=== PATIENT | male | born 1980 | race Caucasian/White ===

== ENCOUNTER 2023-10-07 05:15 | Emergency (ER) | payer BC, SELFPAY ==
[2023-10-07 05:16] VITALS: BP 125/79; PULSE 64; RESP 18; TEMP 36.7; O2SAT 100
== END 2023-10-07 07:13 | disposition left against medical advice (07) ==
LOC: ANHED 05:48
PROVIDERS: PCP Family Medicine
DX: R10.9 Unspecified abdominal pain (principal); Z53.21 Procedure and treatment not carried out due to patient leaving prior to being seen by health care provider
CPT/HCPCS: 99199

== ENCOUNTER 2025-08-21 16:19 | Emergency (ER) | payer BC, SELFPAY ==
--- NOTE | ~2025-08-21 | XR_ITS ---
EXAMINATION: XR tibia fibula RT 2V, 08/21/2025 16:50 INDUSTRIAL TECHNOLOGY EDUCATION TEACHER HISTORY: pain medial mid shaft x 3 wks, no injury, pt a runner COMPARISON: No comparisons available. Findings: No acute fracture or malalignment. No significant degenerative changes. Soft tissues unremarkable. Impression: No acute fracture or malalignment. Reviewed, dictated and finalized at location P. STRIAL TECHNOLOGY EDUCATION TEACHER Impression: No acute fracture or malalignment.
[2025-08-21 16:26] VITALS: BP 131/84; PULSE 83; RESP 16; TEMP 36.5; O2SAT 98
--- NOTE | 2025-08-21 16:39 | ED.LOWEXIN ---
HPI - Extremity Injury (Lower) General Chief Complaint: Extremity Injury, Lower Stated Complaint: Haynes Pain Time Seen by Provider: 08/21/25 16:39 Source: patient, RN notes reviewed and old records reviewed Mode of arrival: ambulatory Limitations: no limitations History of Present Illness HPI Narrative: 44 year old male with complaints of running 4 miles about 4 weeks ago and could hardly walk after completing run. Patient reports that he has had continued pain. Patient reports that he has minimal pain at rest but with going up steps, minimal running or jogging pain increased to 7/10. Patient reports that he has taken Ibuprofen at first for his pain initially but has not taken any since. Patient concerned for possible haynes splint or stress fracture MD complaint: other (pain to right lower anterior leg) Onset (ago): week(s) (4) Type of Injury: other (pain to left haynes) Place: street/outdoors Severity scale (1-10): 7 (with moderate activity) Treatments prior to arrival: NSAIDS Related Data Allergies Allergy/AdvReac Type Severity Reaction Status Date / Time No Known Allergies Allergy Verified 08/21/25 16:34 Review of Systems Review of Systems: CONSTITUTIONAL: Denies fever, chills, or sweats. EYES: Denies visual changes, redness, or discharge. ENT: Denies rhinorrhea, congestion, sore throat, or otalgia. CARDIOVASCULAR: Denies chest pain, palpitations, or edema. RESPIRATORY: Denies cough or dyspnea. GASTROINTESTINAL: Denies abdominal pain, nausea, vomiting, or diarrhea. GENITOURINARY: Denies dysuria or hematuria. SKIN: Denies rash or itching. MUSCULOSKELETAL: Denies back pain, pain to the anterior aspect of right lower leg with concern for possible stress fracture or haynes splints, joint pain, or myalgia. NEUROLOGIC: Denies headache, numbness, or weakness. PSYCHIATRIC: Denies anxiety or depression. All systems reviewed & are unremarkable except as noted in HPI and below PMFSH Family History Family History Other Family history of malignant neoplasm Hypertension Social History Social History (Updated 08/23/25 @ 20:24 by Lizzie Lucero APRN) Alcohol intake: never Substance use type: does not use Living arrangements: with family Gender identity (if verbalized by the patient): Male Comments At time of signature, agree with nursing past medical, surgical, social and family history. There is no relevant family history pertinent to the presenting complaint Exam Narrative: GENERAL: Well-appearing, well-nourished, and in no acute distress. HEAD: Normocephalic, atraumatic. EYES: PERRLA and EOMI. ENT: Nares clear, no rhinorrhea or epistaxis. Mucous membranes moist. NECK: Supple. no lymphadenopathy CHEST: Clear to auscultation. No respiratory distress.SAO2 98% on room air HEART: Regular rate and rhythm. No murmur heard. Normal peripheral pulses. ABDOMEN: Soft, nontender, nondistended, normal active bowel sounds. EXTREMITIES: Normal range of motion. No edema. pain to the anterior right haynes which increased with activity and going up stairs. Patient reports that he has no tingling or numbness to his right leg or foot with full ROM of right leg, hip,knee ,foot and ankle without difficulty SKIN: Warm, dry, no rash. NEURO: No focal deficits. Alert and oriented x3. Course Course Emergency Course: Patient is aware of diagnosis, understands and agrees to treatment plan.? Anticipatory guidance given.? Patient agrees to follow-up as directed and is aware of reasons to seek care at the emergency department. Portions of this record may have been created with voice recognition software Level of Care: Express Care Visit Vital Signs Vital signs: Vital Signs Temperature 36.5 C 08/21/25 16:26 Pulse Rate 83 08/21/25 16:26 Respiratory Rate 16 08/21/25 16:26 Blood Pressure 131/84 08/21/25 16:26 Pulse Oximetry 98 08/21/25 16:26 Temperature 36.5 C 08/21/25 16:26 Pulse Rate 83 08/21/25 16:26 Respiratory Rate 16 08/21/25 16:26 Blood Pressure 131/84 08/21/25 16:26 Pulse Oximetry 98 08/21/25 16:26 Reviewed MDM - Extremity Injury (Lower) Differential Diagnosis Differential diagnosis: Likely other (stress fracture to right tibia, haynes pain anterior right leg, haynes splints) Medical Records Attestation: I reviewed the patient's medical records. Imaging Data Attestation: I personally reviewed and interpreted this imaging study as follows: My impression: right tibia/fibula: no acute fracture or malalignment Radiologist's impression: [facility] [address] [facility] [place] [address] XRay Report Signed Patient: Mango Moise : 1980 MR#: [id number] Age: 44 Acct:[id number] Loc: [facility] ADM Date: 08/21/[address]: Ordering Physician: Lizzie Lucero APRN Date of Service: 08/21/25 Procedure(s): XR tibia fibula RT 2V Accession Number(s): [id number] cc: SAMPLE CARRIER PHYSICIAN; Lizzie Lucero PLANTING MACHINE OPERATOR~ EXAMINATION: XR tibia fibula RT 2V, 08/21/2025 16:50 SPECIALIZED LANGUAGE INSTRUCTOR HISTORY: pain medial mid shaft x 3 wks, no injury, pt a runner COMPARISON: No comparisons available. Findings: No acute fracture or malalignment. No significant degenerative changes. Soft tissues unremarkable. Impression: No acute fracture or malalignment. Reviewed, dictated and finalized at location P. IALIZED LANGUAGE INSTRUCTOR Please be advised this is a medical document. It is intended for [id number] communication. It is written in medical language and may contain unfamiliar abbreviations or verbiage. Medical documents are intended to carry relevant information, facts as evident, and the clinical opinion of the practitioner at the time of the encounter. This report may have been done utilizing a voice recognition system. Attempts have been made to correct errors. However, there may be uncorrected grammatical, spelling, and recognition errors present. The file time of this note does not necessarily represent the time of service. Dictated By: Riley Newell MD 08/21/25 1658 Signed By: <Electronically signed by Riley Newell MD in OV> Critical Care Time Critical Care Time Critical Care Time: No Discharge Plan Discharge Clinical Impression: Pain in right haynes Patient Disposition: Home Condition: Stable Instructions: Antibiotic Form, Leg Pain (ED) Additional Instructions: Elastic wrap or compression hose to right lower leg Tylenol for lesser pain Ibuprofen regularly for the next 2-3 days for the inflammation prednisone as prescribed with food start dose tomorrow morning Follow-up with orthopedic surgeon as arranged Follow-up with PCP if further problems or concerns Ice to the area 20-30 minutes 4-6 times a day Elevate above heart If your symptoms persist, change or worsen significantly before you can contact your personal physician then please, without delay, go to the emergency department for further evaluation. Follow-up with PCP in 7-10 days or sooner if needed Follow up with PCP soon in regards to your blood pressure which is elevated above threshold for referral. Blood pressure above 120/80 may indicate pre-hypertension. 131/84 Patient Language: Zimbabwean Prescriptions: New prednisone 20 mg tablet 40 mg PO DAILY 5 Days Qty: 10 0RF Follow-up/Referrals: PHYSICIAN,SAMPLE CARRIER [Primary Care Provider, Internal Medicine] Time of Disposition: 17:25 Quality [place] Coma Scale Eyes: Open Verbal: Oriented and Alert Motor: Follows Commands [place] Coma Total Score: 15
== END 2025-08-21 17:29 | disposition home or self-care (01) ==
PROVIDERS: Emergency Provider Registered Nurse
DX: M79.661 Pain in right lower leg (principal)
CPT/HCPCS: 73590; 99203; G0463

== ENCOUNTER 2025-10-06 22:02 | Emergency (ER) | payer BC, SELFPAY ==
--- NOTE | ~2025-10-06 | CT_ITS ---
CT HEAD NON-CONTRAST CT C-SPINE Clinical History: RUE paresthesias Comparison: None Technique: Unenhanced axial images skull base to vertex. Coronal, sagittal reformats. Axial images thoracic inlet to skull base. Sagittal and coronal reformats. CT images acquired with automatic exposure control for dose reduction DLP: 605 mGy-cm Findings: Head: Sulci, ventricles: Unremarkable. No intracerebral hemorrhage. No evidence acute territorial infarct. No mass effect, midline shift, intra-/extra-axial fluid collection. Bony calvarium intact. Visualized paranasal sinuses: Clear. Mastoid air cells: Clear. C-spine: No acute fracture or listhesis. Vertebral bodies normal height and alignment. No significant degenerative changes. Disc spaces maintained. Prevertebral soft tissues within normal limits. Visualized lung apices: Clear. Visualized thyroid: Unremarkable. No enlarged cervical nodes. IMPRESSION: HEAD: 1. No acute intracranial findings. C-SPINE: 1. No acute fracture. Reviewed, dictated and finalized at location R. MARKER IMPRESSION: HEAD: 1. No acute intracranial findings. C-SPINE: 1. No acute fracture.
--- NOTE | ~2025-10-06 | XR_ITS ---
Examination: XR shoulder RT min 2V Clinical History: anterior shoulder pain, paresthesias Comparison: None Technique: 3 views right shoulder Findings/impression: 1. No fracture or dislocation right shoulder. Reviewed, dictated and finalized at location R. EANT OF OFFICERS
--- OUTSIDE RECORDS SUMMARY | 2025-10-06 22:04 | XMS_ITS | Clinical Summary ---
Author Organization [facility] Address [address] [place] [address] Care Team Providers Care [employer] Supervisor Name Role Phone Fantasma Damian MD Primary Care Provider Source Comments [facility],non-owned Affiliates and Associated Physician Practices is amultiple site organization consisting of ambulatory clinics and hospital sitesin [place], [place], [place] and [place]. This disclosure is being madepursuant to the Care Everywhere program and may not contain all information available regarding this patient. Last updated 18.[facility] [employer] Allergies No known active allergies Medications * Be aware that medications may not be up to date on this document. Alwaysverify current medications with the patient. No known medications Active Problems No known active problems Social History Tobacco Use Types Packs/Day Years Used Date Smoking Tobacco: Never Smokeless Tobacco: Never Sex and Gender Information Value Date Recorded Sex Assigned at Not on file Legal Sex Male 2:33 PM DIRECTOR OF PRODUCT DEVELOPMENT Gender Identity Not on file Sexual Orientation Not on file Last Filed Vital Signs Vital Sign Reading Time Taken Comments Blood Pressure 116/68 11/22/2019 9:11 AM DIRECTOR OF PRODUCT DEVELOPMENT Pulse 62 11/22/2019 9:11 AM DIRECTOR OF PRODUCT DEVELOPMENT Temperature 36.7 C (98 F) 11/22/2019 9:11 AM DIRECTOR OF PRODUCT DEVELOPMENT Respiratory Rate 16 11/22/2019 9:11 AM DIRECTOR OF PRODUCT DEVELOPMENT Oxygen Saturation 98% 11/22/2019 9:11 AM DIRECTOR OF PRODUCT DEVELOPMENT Inhaled Oxygen Concentration - - Weight 90.7 kg (200 lb) 11/22/2019 9:11 AM DIRECTOR OF PRODUCT DEVELOPMENT Height 190.5 cm (6' 3) 11/22/2019 9:11 AM DIRECTOR OF PRODUCT DEVELOPMENT Body Mass Index 25 11/22/2019 9:11 AM DIRECTOR OF PRODUCT DEVELOPMENT Plan of Treatment Health Maintenance Due Date Last Done Comments JEY (AGES 45-75) - COL ON CA SCREENING 1980 COLON MONITORING 1980 COLONOSCOPY - COLON CA SCREENING 1979 CT COLONOGRAPHY - COLON CA SCREENING 1980 Colorectal Cancer Screening 1980 FIT - COLON CA SCREENING 1980 FLEX SIG - COLON CA SCREENING 1979 LIPID TESTING 1980 HIV SCREENING 1994 HEPATITIS C SCREENING 10/27/1997 DTAP/TDAP/TD VACCINES (1 - Tdap) 1998 HEPATITIS B VACCINE (1 of 3 - 19+ 3-dose series) 1998 HPV VACCINE (1 - 3-dose SCDM series) 2006 SCREENING FOR DIABETES 11/22/2019 DEPRESSION SCREENING 10/12/2024 COVID-19 VACCINE (1 - 2024-2 6 season) 2025 INFLUENZA VACCINE (#1) 2025 ZOSTER VACCINE (1 of 2) 2029 HIB VACCINE Aged Out No longer eligi ble based on patient's age to complete this topic MENINGOCOCCAL (Group B) VACC INE SHARED DECISION-MAKING Aged Out No longer eligibl e based on patient's age to complete this topic MENINGOCOCCAL GROUPS A/C/Y/W VACCINE Aged Out No longer eligible b ased on patient's age to complete this topic PNEUMOCOCCAL VACCINE Aged Out No long er eligible based on patient's age to complete this topic Insurance [facility] Care Teams [employer] Supervisor Relationship Specialty Start Date End Date Fantasma Damian MD [address] [place] [address] PCP - General Family Medicine 11/21/16
--- OUTSIDE RECORDS SUMMARY | 2025-10-06 22:04 | XMS_ITS | Clinical Summary ---
Author Organization [address] Address [address] [place] [address] Care Team Providers Care Supervisor [employer]al Iron[employer] Name Role Phone Lai Toth MD Primary Care Provider [phone] Allergies No known active allergies Medications pantoprazole DR (PROTONIX) 40 mg EC tablet TAKE 1 TABLET(40 MG) BY MOUTH DAILY 90 tablet Active Additional Information Patient not taking.Reported on 12/08/2022 Active Problems No known active problems Immunizations Immunization Administration Dates Next Due Influenza, Unspecified 05/30/2022(Deferr ed: Patient Refused),04/25/2022(Deferred: Patient Refused),10/12/2021(Deferred: Patient Refused),07/12/2021(Deferred: Patient Refused),07/12/2020(Deferred: Patient Refused),10/12/2019(Deferred: Patient Refused) Pfizer SARS-CoV-2 Monovalent Vaccination (12+ Yrs) PURPLE 12/16/2020,11/18/2020 Surgical History Surgery Date Site/Laterality Comments NO PAST SURGERIES Medical History Medical History Date Comments Covid 07/17/2021 Brain concussion Family History Medical History Relation Name Comments No Known Problems Father Cancer Mother Lizzie Relation Name Status Comments Father Alive Mother Lizzie Alive Social History Tobacco Use Types Packs/Day Years Used Date Smoking Tobacco: Never Smokeless Tobacco: Never PHQ-2 Answer Date Recorded PHQ-2 Total Score 0 04/25/2022 Personal Safety Answer Date Recorded Getting School Help Needed Not on file 10/30 Sex and Gender Information Value Date Recorded Sex Assigned at Not on file Legal Sex Male 7:15 PM BUSINESS DEVELOPMENT ENGINEER Gender Identity Male 04/18/2021 8:48 AM CDT Sexual Orientation Straight 04/18/2021 8 :48 AM CDT Last Filed Vital Signs Vital Sign Reading Time Taken Comments Blood Pressure 126/80 12/08/2022 4:29 PM BUSINESS DEVELOPMENT ENGINEER Pulse 70 12/08/2022 4:29 PM BUSINESS DEVELOPMENT ENGINEER Temperature 36.3 C (97.3 F) 12/08/2022 4:29 PM BUSINESS DEVELOPMENT ENGINEER Respiratory Rate 16 12/08/2022 4:29 PM BUSINESS DEVELOPMENT ENGINEER Oxygen Saturation 97% 12/08/2022 4:29 PM BUSINESS DEVELOPMENT ENGINEER Inhaled Oxygen Concentration - - Weight 92.7 kg (204 lb 6.4 oz) 12/08/2022 4:29 P M BUSINESS DEVELOPMENT ENGINEER Height 190.8 cm (6' 3.12) 12/08/2022 4:29 PM CS T Body Mass Index 25.47 12/08/2022 4:29 PM BUSINESS DEVELOPMENT ENGINEER Plan of Treatment Health Maintenance Due Date Last Done Comments Colon Cancer Screening-Colonoscopy 1980 Hepatitis C Screening 1980 DTaP/Tdap/Td Vaccine (1 - Tdap) 1990 Varicella Vaccines (1 of 2 - 13+ 2-dose series) 1992 Hepatitis B Screening 1997 HPV Vaccines (1 - 3-dose SCD M series) 2006 Regular Well Visit/Exam 18-64 04/12/2022 04/12/2021 Depression Screening 04/25/2023 04/25/2022, 04/12/2021 Covid-19 Vaccine (3 - 2024-2 6 season) 2025 12/16/2020, 11/18/2020 Influenza Vaccine (#1) 2025 Pneumococcal vaccine <65 Aged Out No longer eligible based on patient's age to complete this topic Insurance [facility] Care Teams Supervisor Ornamental Ironworking Relationship Specialty Start Date End Date Lai Toth MD [address] [place] [address] PCP - General Family Medicine 04/12/21
[2025-10-06 22:13] VITALS: BP 134/83; PULSE 64; RESP 18; TEMP 36.4; O2SAT 97
[2025-10-06 22:44] VITALS: BP 138/82; PULSE 72; RESP 18; TEMP 36.4; O2SAT 97
--- NOTE | 2025-10-07 00:42 | ED.UPPEXIN ---
HPI - Extremity Injury (Upper) General Chief Complaint: Extremity Injury, Upper Stated Complaint: chills, bodyaches Time Seen by Provider: 10/06/25 23:44 Source: patient and family Mode of arrival: ambulatory Limitations: no limitations History of Present Illness HPI narrative: Right hand dominant male presents with report of numbness in his right arm that started tonight. Mild pain. Had been fishing earlier but no known inciting event. Developed chills and body aches. Denies any weakness. No history DM. Does not have a PCP. The numbness is primarily overlying the right anterior shoulder but also will radiating from the neck to the fingers. No areas seem spared in particular. Started having jumping extremity with tingling and involuntary movements, also in both legs. This has occasionally happened before but not the paresthesias. No trauma/falls/surgery. Right neck/shoulder pain. denies chest pain or headache. No slurred speech or facial droop. Related Data Allergies Allergy/AdvReac Type Severity Reaction Status Date / Time No Known Allergies Allergy Verified 10/06/25 22:22 [facility] Past Medical History Medical History Right hand dominant Family History Family History Other Family history of malignant neoplasm Hypertension Social History Social History (Updated 08/23/25 @ 20:24 by Lizzie Lucero APRN) Smoking status: Never smoker Alcohol intake: never Substance use type: does not use Living arrangements: with family Gender identity (if verbalized by the patient): Male Exam Narrative: GENERAL: Well-appearing, well-nourished, and in no acute distress. HEAD: Normocephalic, atraumatic. EYES: Non injected, non icteric ENT: Nares clear, no rhinorrhea or epistaxis. Gross auditory acuity intact. NECK: Supple. No meningismus. CHEST: Speaking in full sentences. No respiratory distress. HEART: Regular rate and rhythm. . ABDOMEN: Soft, nondistended. No rigidity or guarding. Not peritoneal EXTREMITIES: Normal range of motion. No upper extremity edema. No tenderness to palpation of shoulder girdle. Neers test performed without difficulty. Patient has pain with [place] lift off on the right but technically ROM intact compared to the left. Extremity is warm and well perfused. 5/5 strength with bilateral elbow flexion/extension. Bilateral 5/5 strength with shoulder abduction. SKIN: Warm, dry, no rash. NEURO: No focal deficits. Alert and oriented. Answering questions. Following commands. Normal speech without aphasia or dysarthria. Sensation intact throughout right upper extremity. No abnormal movements appreciated. No loss of nasolabial fold, face symmetric PSYCH: Normal mood and affect. Course Vital Signs Vital signs: Vital Signs Temperature 97.6 F 10/06/25 22:13 Pulse Rate 64 10/06/25 22:13 Respiratory Rate 18 10/06/25 22:13 Blood Pressure 134/83 10/06/25 22:13 Pulse Oximetry 97 10/06/25 22:13 Oxygen Delivery Room Air 10/06/25 22:13 Temperature 97.2 F L 10/07/25 03:07 Pulse Rate 77 10/07/25 03:07 Respiratory Rate 14 10/07/25 03:07 Blood Pressure 132/66 10/07/25 03:07 Pulse Oximetry 100 10/07/25 03:07 Oxygen Delivery Room Air 10/06/25 22:13 MDM MDM Narrative Medical decision making narrative: Right hand dominant male presents with right arm numbness. Had been throughout right neck/shoulder/arm/hand but not primarily localized to right anterior shoulder. No trauma. Associated with jumping movements which had occurred previously. In the emergency department they are afebrile with vital signs within normal limits. Neurovascularly intact. Viral swab negative. CBC with mild abnormalities on the differential including a slightly low hematocrit however hemoglobin is normal and patient is without leukocytosis or thrombocytosis/thrombocytopenia. Magnesium and ESR normal. ALT elevation isolated with no prior for comparison. CPK not elevated. CRP normal. Stable for discharge. Ad Differential Diagnosis Differential Diagnosis: brachial plexus injury; rotator cuff pathology, tendinopathy; considered torn bicep; electrolyte abnormalities, symptomatic anemia, rhabdo. low suspicion fracture/dislocation. Low suspicion stroke. Considered C spine injury. Considered zoster Lab Data 10/07/25 00:55 10/07/25 00:55 Labs: Lab Results 10/07/25 10/07/25 Range/Units 00:22 00:55 WBC 8.8 (4.5-10.0) K/mm3 RBC 4.59 L (4.6-6.20) M/mm3 Hgb 14.3 (14.0-18.0) g/dL Hct 40.2 L (42.0-52.0) % MCV 87.6 (80-100) fl MCH 31.2 (26-34) pg MCHC 35.6 (32-36) g/dl RDW 12.4 (11.5-14.5) % Plt Count 202 (150-375) k/mm3 MPV 10.7 H (7.4-10.4) fl Immature Gran % (Auto) 0.3 (0-0.5) % Neut % (Auto) 55.5 (45.5-73.1) % Lymph % (Auto) 31.5 (18.3-44.2) % [place] % (Auto) 10.9 H (2.6-8.5) % Eos % (Auto) 1.5 (0-4.4) % Baso % (Auto) 0.3 (0.2-1.2) % Lymph # (Auto) 2.78 (0.9-3.2) K/mm3 [place] # (Auto) 1.0 H (0.1-0.6) K/mm3 Eos # (Auto) 0.1 (0-0.3) K/mm3 Baso # (Auto) 0.0 (0.0-0.1) K/mm3 Abs Immat Gran (auto) 0.03 (0.00-0.031) K/mm3 Absolute Neuts (auto) 4.9 (1.3-6.7) K/mm3 Absolute Nucleated RBC 0.000 (0.0-0.012) K/mm3 Nucleated RBC % 0.0 (0.0-0.2) % ESR 11 (0-20) mm/hr Sodium 137 (137-145) mmol/L Potassium 3.9 (3.4-5.0) mmol/L Chloride 103 (98-107) mmol/L Carbon Dioxide 27 (22-30) mmol/L Anion Gap 7 (4-12) mmol/L BUN 24 H (9-20) mg/dL Creatinine 1.10 (0.7-1.3) mg/dL Estim Creat Clear Calc 90 ml/min Estimated GFR > 60 (59 - ) Glucose 96 (65-110) mg/dL Calcium 9.1 (8.4-10.2) mg/dL Magnesium 2.0 (1.6-2.3) mg/dL Total Bilirubin 0.5 (0.2-1.3) mg/dL AST 45 (17-59) U/L ALT 62 H (6-50) U/L Alkaline Phosphatase 70 (38-126) U/L Total Creatine Kinase 200 H (55-170) U/L C-Reactive Protein 0.5 (<1.0) mg/dL Total Protein 7.2 (6.3-8.2) g/dL Albumin 4.3 (3.5-5.1) g/dL Influenza A (RT-PCR) Negative (Negative) Influenza B (RT-PCR) Negative (Negative) RSV (RT-PCR) Negative (Negative) SARS-CoV-2 RNA (RT-PCR) Negative (Negative) Imaging Data Attestation: I personally reviewed and interpreted this imaging study as follows: My impression: No acute process on my independent interpretation of shoulder XRay Radiologist's impression: ITS Impressions Cervical Spine CT 10/07/25 06:30 IMPRESSION: HEAD: 1. No acute intracranial findings. C-SPINE: 1. No acute fracture. Head CT 10/07/25 06:30 IMPRESSION: HEAD: 1. No acute intracranial findings. C-SPINE: 1. No acute fracture. CT Head stat rad: No acute hemorrhage, hydrocephalus, or herniation CT C-spine stat Rad: No acute fracture subluxation. No prevertebral soft tissue swelling. Unremarkable upper lungs. Discharge Plan Discharge Clinical Impression: Right upper extremity numbness, Elevated alanine aminotransferase (ALT) level, Acute pain of right shoulder Patient Disposition: Home Condition: Stable Instructions: Antibiotic Form, Paresthesia (ED), Shoulder Pain (ED) Additional Instructions: Because you do not have a primary care physician the name of a doctor is listed below. You can also follow up with orthopedic surgery, listed below. Call the office to schedule appointment(s). They can both see record of your work up from today which was otherwise reassuring/without obvious explanation for your symptoms. They may recommend advanced imaging, alternative pain medication, physical therapy, injections, etc. return to the emergency department with any new or worsening symptoms. Acetaminophen/Tylenol (maximum 4000 mg per day) is safe to take with NSAIDs (ibuprofen/Motrin) for pain relief. Patient Language: Mauritian Prescriptions: New acetaminophen 500 mg capsule 1,000 mg PO Q6H PRN (Reason: pain) Qty: 30 0RF ibuprofen 600 mg tablet 600 mg PO TID PRN (Reason: pain) Qty: 30 0RF No Action prednisone 20 mg tablet 40 mg PO DAILY 5 Days Qty: 10 0RF Follow-up/Referrals: PHYSICIAN,CREDIT DIRECTOR [Primary Care Provider, Internal Medicine] Troy Figueroa MD [Physician, Family Practice] Abdon Jim MD [Physician, Orthopedics] Stand Alone Forms: Work/School Release IP Time of Disposition: 02:48
[2025-10-07 01:08] LABS: Hematocrit 40.2 % (42.0-52.0); Hemoglobin 14.3 g/dL (14.0-18.0); Immature Granulocyte Percent A 0.3 % (0-0.5); Lymphocytes Absolute Auto 2.78 K/mm3 (0.9-3.2); Mean Corpuscular HGB Conc 35.6 g/dl (32-36); Mean Corpuscular Hemoglobin 31.2 pg (26-34); Mean Corpuscular Volume 87.6 fl (80-100); Nucleated Red Blood Cells Absolute Auto 0.000 K/mm3 (0.0-0.012); Nucleated Red Blood Cells Perc 0.0 % (0.0-0.2); Platelet Count Result 202 k/mm3 (150-375); Red Blood Count 4.59 M/mm3 (4.6-6.20); White Blood Count 8.8 K/mm3 (4.5-10.0)
[2025-10-07 01:12] LABS: Influenza A QL RT-PCR Negative (Negative); Influenza B QL RT-PCR Negative (Negative); RSV RNA, RT-PCR Negative (Negative); SARS-CoV-2 RNA PCR Negative (Negative)
[2025-10-07 01:24] LABS: Alanine Aminotransferase 62 U/L (6-50); Albumin Level 4.3 g/dL (3.5-5.1); Alkaline Phosphatase 70 U/L (38-126); Anion Gap 7 mmol/L (4-12); Aspartate Amino Transferase 45 U/L (17-59); Bilirubin,Total 0.5 mg/dL (0.2-1.3); Blood Urea Nitrogen 24 mg/dL (9-20); CRP 0.5 mg/dL (<1.0); Calcium 9.1 mg/dL (8.4-10.2); Carbon Dioxide 27 mmol/L (22-30); Chloride 103 mmol/L (98-107); Creatine Kinase 200 U/L (55-170); Estimated CRCL calculation 90 ml/min; Estimated Glomerular Filt Rate > 60; Glucose 96 mg/dL (65-110); Magnesium 2.0 mg/dL (1.6-2.3); Potassium 3.9 mmol/L (3.4-5.0); Sodium 137 mmol/L (137-145); Total Protein 7.2 g/dL (6.3-8.2)
[2025-10-07] MEDS: ACETAMINOPHEN 500 MG TABLET 1000 MG PO (01:53)
[2025-10-07 03:07] VITALS: BP 132/66; PULSE 77; RESP 14; TEMP 36.2; O2SAT 100
== END 2025-10-07 03:08 | disposition home or self-care (01) ==
PROVIDERS: Emergency Provider Student in an Organized Health Care Education/Training Program
DX: R20.0 Anesthesia of skin (principal); M25.511 Pain in right shoulder; R74.01 Elevation of levels of liver transaminase levels; Z20.822 Contact with and (suspected) exposure to COVID-19
CPT/HCPCS: 36415; 70450; 72125; 73030; 80053; 82550; 83735; 85025; 85652; 86140; 87637; 99284; A9270